=== PATIENT | male | born 1945 | race Caucasian/White ===

== ENCOUNTER 2018-08-16 16:44 | Emergency (ER) | payer OTHER ==
[~2018-08-16] VITALS: Ht 177.8 cm; Wt 117.9 kg
--- NOTE | 2018-08-16 16:44 | NUR ---
72M brought in by ems from pt's home for cardiac arrest. Pt was seen normal last about 1500hrs today, compressions initiated by ems about 20mins prior to arrival with asystole in field; Pt was shocked x1 at 200J vf; 4 rounds of epinephrine io given relief captain; Pt was intubated with 8.0 ETT tube at 22 cm at teeth; Pt with no sign of injury/trauma noted: Pt with fixed dilated pupils on arrival. See Code Blue Record hx---dm, htn, cad
--- NOTE | 2018-08-16 16:44 | NUR ---
PT BIBA ALS FULL ARREST TO BED 10
--- NOTE | 2018-08-16 16:52 | NUR ---
upon pulse check, pt remains asystole called time of @ 0604
--- NOTE | 2018-08-16 16:52 | NUR ---
Er md Tomer Chong pronounced of time without objections
--- NOTE | 2018-08-16 17:17 | NUR ---
[facility] called; Spoke with Xavier Montilla; will call back with answer; Reference #[id number]
--- NOTE | 2018-08-16 17:26 | NUR ---
Left message with dispatcher of [facility]; waiting for response; will follow up
--- NOTE | 2018-08-16 17:51 | NUR ---
Spoke with Renae Yost from [facility]; patient still candidate for [facility]; Will call back
--- NOTE | 2018-08-16 18:36 | NUR ---
[facility] [address] [place] [address]
--- NOTE | 2018-08-16 19:00 | NUR ---
Spoke with Renae from [facility]; patient is still eligible; will follow up
--- NOTE | 2018-08-16 19:04 | NUR ---
Pt report given to Tim CLEARY. Transfer of care at this time.
--- NOTE | 2018-08-16 19:10 | NUR ---
ASSUMED CARE OF PT AT THIS TIME
--- NOTE | 2018-08-16 19:22 | NUR ---
SPOKE WITH GLORIA MORALES FROM [facility]- PT RELEASED. PROVIDED RELEASE #[id number].
--- NOTE | 2018-08-16 19:30 | NUR ---
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 ADVISED TO CALL BACK WITH BRANDON KEBEDE.
--- NOTE | 2018-08-16 20:25 | NUR ---
PT MOVED TO 126.
--- NOTE | 2018-08-16 20:36 | NUR ---
PT DECIDED TO USE [facility]AD [facility]. SPOKE WITH ALYSA FROM [facility]. ADVISED JENNI WILL CALL WITH BRANDON. Addendum: 08/16/18 at 2050 by [facility] PT FAMILY DECIDED TO [facility]. SPOKE WITH ALYSA FROM [facility]. ADVISED JENNI WILL CALL WITH ETA.
--- NOTE | 2018-08-16 20:41 | NUR ---
SPOKE WITH BEAR FROM [facility] INFORMED OF PT FAMILY REQUEST TO CHANGE HOMES AND [facility] NO LONGER REQUIRED.
--- NOTE | 2018-08-16 23:15 | NUR ---
MITCHELL FROM [facility] ARRIVED TO C[facility] ASSEMBLER BODY.
== END 2018-08-16 16:52 | disposition expired ==
LOC: MED 16:44
DX: I46.9 Cardiac arrest, cause unspecified (principal); I10 Essential (primary) hypertension; J44.9 Chronic obstructive pulmonary disease, unspecified; Z79.899 Other long term (current) drug therapy
CPT/HCPCS: 92950; 99285